=== PATIENT | female | born 1935 | race Caucasian/White ===

== ENCOUNTER → 2017-03-07 | Outpatient (CLI) | payer MEDICARE ==
--- NOTE | 2017-03-08 09:26 | REP ---
Whole body PET CT scan: Comparison is the CT of the chest dated 01/31/2017. Whole body PET CT scan is performed from skull base to the upper thighs. Neck and supraclavicular areas: There are no hypermetabolic foci. Chest: The patient's known right chest mass demonstrates borderline hypermetabolic activity with a maximal standard uptake value of two point 30. There is enlarged mediastinal azygos node with borderline hypermetabolic activity with the maximal standard uptake value measuring 2.9. There is a small focus of hypermetabolic activity appears to be related to the anterior-superior tip of a cardiac left atrial appendage clip with the maximal standard uptake value of 5.3. There are no other foci in the chest. There are bilateral pleural effusions. Abdomen, pelvis and upper thighs: There are no hypermetabolic foci. Impression: There is borderline uptake in the patient's known right chest mass and the patient's known enlarged mediastinal node. There is a small focus of hypermetabolic uptake related to a cardiac left atrial appendage clip. There are bilateral pleural effusions. The study is performed with 10 mCi of F 18 FDG. Signed by Ray Lozano MD 03/08/2017 09:17 A
== END ==
LOC: M PLARAD 10:40
PROVIDERS: ATTEND Internal Medicine Pulmonary Disease
DX: R91.1 Solitary pulmonary nodule (principal); J90 Pleural effusion, not elsewhere classified; R59.0 Localized enlarged lymph nodes
CPT/HCPCS: 78815; A9552